=== PATIENT | female | born 1985 | race Caucasian/White ===

== ENCOUNTER 2019-05-07 21:26 | Emergency (ER) | payer OTHER, SELFPAY ==
[2019-05-07 21:27] VITALS: BP 141/72; PULSE 100; RESP 15; TEMP 36.9; O2SAT 99; BMI 24.5
--- NOTE | 2019-05-07 22:03 | ED.DCSUM_ITS ---
History of Present Illness Chief Complaint: Cough Informant: Patient Narrative: Patient states that on she developed congestion and cough. This progressed to include headaches body aches chest soreness. No vomiting or diarrhea. No rashes. She notes some sore throat. She notes a hoarse voice. Reported fevers. Past Medical History - Allergies and Home Meds Allergies/Adverse Reactions: Allergies amoxicillin [Amoxicillin] Allergy (Verified 05/07/19 21:29) Rash Estrogens Allergy (Verified 05/07/19 21:29) Other Primary Care Physician: Froy Phillips MD [Primary Care Provider] - Smoking Status: Never smoker Review of Systems General: Reports: Chills, Fever, Malaise. Denies: Sweats Eyes: Denies: Visual changes - bilaterally, Diplopia ENT: Reports: Rhinorrhea, Sore throat Cardiovascular: Reports: Chest pain. Denies: Palpitations Respiratory: Reports: Dyspnea, Cough. Denies: Dyspnea on exertion Gastrointestinal: Denies: Abdominal pain, Nausea, Vomiting, Diarrhea, Melena, Hematochezia Genitourinary: Denies: Dysuria, Hematuria, Frequency Musculoskeletal: Reports: Myalgias, Back pain. Denies: Extremity Pain Skin: Denies: Rash, Wounds Neurological: Denies: Headache, Weakness, Numbness Physical Exam Vital Signs/Narrative: Vital Signs Temp Pulse Resp BP Pulse Ox 05/07/19 21:27 98.5 F 100 15 141/72 H 99 Inital Vital Signs reviewed: Yes General: Well nourished, Well developed, No Acute Distress Head: Normocephalic, Atraumatic Eyes: Perrl, EOMI ENT: Moist mucous membranes, Nasal congestion Neck: Supple, Nontender Cardiovascular: Regular rate, Regular rhythm, No murmurs Respiratory: No distress, CTA bilaterally, Chest nontender Abdomen: Soft, Nontender, Nondistended, Normal bowel sounds Back: Nontender, Normal Inspection Extremities: Nontender, No edema Skin: Normal color, No rash Neurological: Alert, Oriented x3, Cranial nerves II-XII grossly intact, Normal Strength, Normal Sensation Psychological: Normal affect, Normal Mood Diagnostic/Tx/Re-eval - Medical Decision Making Chest x-ray is normal. Given her symptoms is most likely a viral illness. Patient will be discharged home with albuterol MDI see if that can help decrease her cough. She has been humidifying her room which I would encourage. Follow- up as needed ED Disposition - Plan for ED Patient: Disposition: Home or Assisted Living Diagnosis: Influenza-like illness Instructions: VIRAL SYNDROME (Adult) Prescriptions: Albuterol Inhaler [Ventolin Hfa] 2 puff INHALATION Q4H PRN PRN #1 inhaler PRN Reason: Wheezing Prescription Printed Referrals: Froy Phillips MD [Primary Care Provider] - As Needed
--- NOTE | 2019-05-07 22:05 | RAD_ITS ---
STUDY: X-RAY CHEST REASON FOR EXAM: Female, 33 years old. PT ARRIVES TO ED WITH COUGH, CONGESTION, FEVER, AND MUSCLE ACHES. TECHNIQUE: PA and lateral chest. COMPARISON: None. FINDINGS: The lungs are clear and expanded. There is no demonstrated pleural abnormality. Normal size heart. Normal mediastinum and jaxon. Normal visualized pulmonary arteries. Normal visualized aortic arch and descending thoracic aorta. Normal visualized thoracic spine. Normal visualized ribs, clavicles, and shoulders. There is no demonstrated abnormality of the visualized soft tissue structures of the upper abdomen. RAD/Chest PA and Lateral IMPRESSION: Normal x-ray examination of the chest. Electronically Signed: Marichuy Duncan MD at 22:20 EST Tel , Service support ,
[2019-05-07 22:49] VITALS: BP 138/76; PULSE 88; RESP 16; O2SAT 96
== END 2019-05-07 22:51 | disposition home or self-care (01) ==
PROVIDERS: Emergency Provider Emergency Medicine; PCP Family Medicine
DX: J11.1 Influenza due to unidentified influenza virus with other respiratory manifestations (principal); Z88.0 Allergy status to penicillin
CPT/HCPCS: 71046; 99282

== ENCOUNTER 2024-07-04 21:39 | Emergency (ER) | payer BC, SELFPAY ==
[2024-07-04 21:41] VITALS: BP 114/79; PULSE 101; RESP 18; TEMP 36.7; O2SAT 100; BMI 23.7
--- NOTE | 2024-07-04 22:50 | EX.ED.DYSGE1 ---
HPI History of Present Illness Chief Complaint: Sore Throat Detail of Chief Complaint: Difficulty swallowing after choking on chicken. Informant: patient Onset/Context/Timing Onset: Today Context: Sudden Onset Timing: Continuous Current Severity: Mild Maximum Severity: Mild Narrative Narrative: 38-year-old female history of reflux and anxiety and depression. Uses antireflux medication. Tonight at dinner around 630 she was eating chicken she choked on the first piece. And has been unable to swallow since that time has had painful swallowing. Prior to that she felt fine. Denies any recent sore throat. Prior similar symptoms: Yes Recent Illness/Hospitalization: No PFSH PFS Home Medications ?Medication ?Instructions ?Recorded ?Last Taken ?Type fluoxetine 20 mg capsule 40 mg PO DAILY 06/26/15 Unknown History albuterol sulfate 90 mcg/actuation 2 puff inhalation Q4H PRN PRN 05/07/19 Unknown Rx aerosol inhaler Wheezing ##1 levonorgestrel 1 ea IY DAILY 05/07/19 Unknown History nortriptyline 50 mg capsule 10 mg PO DAILY 05/07/19 Unknown History omeprazole 20 mg capsule,delayed 20 mg PO DAILY 05/07/19 Unknown History release propranolol 120 mg capsule,24 120 mg PO DAILY 05/07/19 Unknown History hr,extended release sumatriptan succinate 100 mg tablet 100 mg PO PRN PRN Migraine Symptoms 05/07/19 Unknown History Allergy/AdvReac Type Severity Reaction Status Date / Time amoxicillin (Amoxicillin) Allergy Rash Verified 07/04/24 21:45 Estrogens Allergy Other Verified 07/04/24 21:45 Social History (Updated 07/04/24 @ 23:11 by Mandy Medley) housing: apartment Smoking Status: Never smoker ROS ROS ED ROS Narrative Painful swallowing after choking on chicken. No recent illness. Constitutional Constitutional ED: Denies chills or fever(s) Eyes Eyes: Denies blurry vision ENT ENT ED: Denies ear pain Cardiovascular Cardiovascular: Denies chest pain Respiratory/Chest Respiratory/Chest: Denies cough or dyspnea Gastrointestinal Gastrointestinal: Denies abdominal pain Genitourinary Genitourinary ED: Denies dysuria or hematuria Musculoskeletal Musculoskeletal: Denies arthralgias or back pain Integumentary Denies abscess or Abrasions Neurologic Neurologic: Denies headache(s) Psychiatric Psychiatric: Denies anxiety or depression Endocrine Endocrinology: Denies cold intolerance Hematologic/Lymphatic Hematologic/Lymphatic: Reports none Allergic/Immunologic Allergic/Immunologic ED: Denies mouth swelling, tongue swelling or urticaria EXAM Physical Exam Narrative Exam Narrative: 38-year-old female sitting upright in bed. Vital signs are stable afebrile. Pulse ox 100% on room air no signs hypoxia. H EENT exam pupils round reactive light. Moist mucous membranes. Posterior pharynx unremarkable. I gave the patient a glass of water it took about a minute and then she brought it back up. Said it hurt and she was unable to complete swallowing. Neck nontender no lymphadenopathy. Lungs clear. Heart regular rhythm no murmur. Rate about 100. Abdomen soft nontender. Moving all 4 extremities. Nontender no edema. She is awake and alert. No focal motor deficits. Const Vital Signs: 07/04/24 21:41 Temperature 98.1 F Temperature Source Oral Pulse Rate 101 H Respiratory Rate 18 Blood Pressure 114/79 Blood Pressure Mean 90 Pulse Ox 100 Oxygen Delivery Method Room Air Positive well nourished and well developed; Negative for obese, cachectic, contractures or unkempt General Appearance ED: well developed and NAD; Negative for unkempt, cachectic, contractures, cyanotic, diaphoretic or pallor Nutritional Appearance: Negative for cachectic or obese HEENT Reports moist mucous membranes Negative for trauma or tenderness Eyes PERRL and EOMs intact bilaterally General Eye ED: Negative for pale conjunctiva or scleral icterus Neck no lymphadenopathy, supple and no JVD Chest Wall inspection of chest normal and palpation of chest normal Resp normal respiratory effort and clear to auscultation bilaterally Effort and Inspection: Negative for retractions Auscultation: Negative for rales, rhonchi or wheezes Cardio regular rate, regular rhythm, S1 normal heart sound, S2 normal heart sound and no murmurs GI normal to inspection, nondistended, normoactive bowel sounds, non-tender, non-distended and no masses Palpation: soft; Negative for rebound tenderness present Back/Spine no CVA tenderness General Back: Negative for CVA tenderness Cervical Spine: Negative for cervical spine tenderness Extremity normal to inspection General Extremety ED: Negative for edema or tenderness General Extremity: Negative for edema Neuro oriented x3 and CN's II-XII intact bilaterally Sensorium / Orientation: alert; Negative for orientation impaired or lethargic Motor Exam: strength 5/5 throughout Psych mental status grossly normal Appearance: Negative for unkempt Mood & Affect: anxious Skin no rashes or lesions noted, no wounds and skin turgor normal General Skin Exam: elasticity normal; Negative for jaundice or pallor Lesions: No lesion noted Rashes: No rashes noted Trauma: Negative for abrasion Wounds: Negative for wounds noted MDM MDM MDM Narrative Medical decision making narrative: 38-year-old female choked on chicken the night at dinner now and difficulty swallowing. She does not need any labs or imaging. She will be given IV glucagon. To see if we can help this resolve. If not she may need upper endoscopy. Repeat exam patient is doing well at 11:45 PM. She was given glucagon. Her symptoms have resolved. She is drinking Coke without any difficulty. She feels fine and feels comfortable being discharged home with outpatient follow-up. She is on antireflux medications at home. History & Record Review Discussion w/independent historian: Patient Additional record(s) reviewed:: Prior inpatient record, Prior outpatient record, Prior ED visit and Prior labs Discharge Plan Triage Chief Complaint: Sore Throat ED Provider: Paul Mclaughlin Dx/Rx/DC Orders Clinical Impression: Impacted foreign body in esophagus, Hx of esophageal reflux Instructions: Medicines for Acid Reflux, ED Esophageal Foreign Body, Resolved Prescriptions: No Action fluoxetine 20 MG capsule 40 mg PO DAILY levonorgestrel 1 EACH intrauterine device 1 ea IY DAILY sumatriptan succinate 100 MG tablet 100 mg PO PRN PRN (Reason: Migraine Symptoms) omeprazole 20 MG capsule,delayed release(DR/EC) 20 mg PO DAILY propranolol 120 MG capsule,extended release 24 hr 120 mg PO DAILY Patient Comments: Take 1 capsule by mouth once daily. nortriptyline 50 MG capsule 10 mg PO DAILY albuterol sulfate 1 INHALER inhaler 2 puff inhalation Q4H PRN PRN (Reason: Wheezing) Qty: 1 0RF Rx Instructions: please dispense with spacer Primary Care Provider: Froy Phillips Referrals: Froy Phillips MD [Primary Care Provider] - As Needed Friend,DO Kun [Med Staff - Active Staff] - As Needed Activity Restrictions/Additional Instructions: Continue your antireflux medication. That will knock down the swelling in your esophagus which make it easier for you to swallow. If this is not improving follow-up with GI or general surgery to have upper endoscopy for further evaluation. Make sure to cut your food up into small pieces and chew thoroughly. Print Language: Nepali Disposition Disposition: Home, Self Care
[2024-07-04] MEDS: Glucagon 1 MG/ML Syringe IV (22:57)
[2024-07-04 23:41] VITALS: RESP 16
[2024-07-04 23:56] VITALS: BP 114/79; PULSE 101; RESP 16; TEMP 36.7; O2SAT 100
== END 2024-07-04 23:56 | disposition home or self-care (01) ==
PROVIDERS: Emergency Provider Emergency Medicine; PCP Family Medicine; Visit Provider Emergency Medicine
DX: T18.128A Food in esophagus causing other injury, initial encounter (principal); R13.0 Aphagia; F41.9 Anxiety disorder, unspecified; K21.9 Gastro-esophageal reflux disease without esophagitis; W44.F3XA Food entering into or through a natural orifice, initial encounter
CPT/HCPCS: 96374; 99282; A4216; J1610